=== PATIENT | female | born 1995 | race Caucasian/White ===

== ENCOUNTER → 2017-09-20 11:09 | Outpatient (CLI) | payer MEDICAID, SELFPAY ==
[2017-09-20 11:49] LABS: Basophils % 0.3 % (0.1-2.0); Eosinophils # 0.3 K/mm3 (0.0-0.4); Eosinophils % 3.2 % (0.1-12.0); Hematocrit 38.6 % (37.0-47.0); Hemoglobin 13.3 g/dL (12.2-16.2); Lymphocytes # 1.9 K/mm3 (0.7-4.5); Lymphocytes % 20.4 K/mm3 (10-50); Mean Corpuscular HGB Conc 34.4 g/dL (31.8-35.4); Mean Corpuscular Hemoglobin 31.7 pg (27.0-31.2); Mean Corpuscular Volume 92.1 fl (81-99); Monocytes # 0.5 K/mm3 (0.1-1.0); Monocytes % 4.9 % (1.7-9.3); Neutrophils # 6.5 K/mm3 (1.8-7.8); Neutrophils % 71.2 % (37.0-80.0); Platelet Count 156 K/mm3 (142-424); Red Blood Count 4.19 M/mm3 (4.20-5.40); Red Cell Distribution Width 12.7 % (11.5-17.5); White Blood Count 9.2 K/mm3 (4.8-10.8)
[2017-09-21 13:38] LABS: Hepatitis B Surface Antigen Negative (Negative); Rapid Plasma Reagin Ab Titer Non Reactive (NonRea<1:1); Rubella Antibodies, IgG <0.90 index (Immune >0.99)
== END ==
PROVIDERS: Family Provider Internal Medicine Adolescent Medicine; PCP Internal Medicine Adolescent Medicine; Visit Provider Nurse Practitioner Obstetrics & Gynecology
DX: Z34.90 Encounter for supervision of normal pregnancy, unspecified, unspecified trimester (principal)
CPT/HCPCS: 85025; 86592; 86762; 86850; 87340

== ENCOUNTER 2017-09-26 15:16 | Emergency (ER) | payer MEDICAID, SELFPAY | END 2017-09-26 16:27 | disposition left against medical advice (07) | LOC: UTC 15:21 | PROVIDERS: Emergency Provider Nurse Practitioner Family; Family Provider Internal Medicine Adolescent Medicine; PCP Internal Medicine Adolescent Medicine | DX: Z53.29 Procedure and treatment not carried out because of patient's decision for other reasons (principal) ==

== ENCOUNTER → 2017-09-27 14:38 | Outpatient (CLI) | payer MEDICAID, SELFPAY ==
--- NOTE | 2017-09-27 14:57 | US_ITS ---
US OB /maternal detail: Complete ultrasound survey at 21 weeks INDICATION: ITS.REASON: 20 wk+ Complete Anatomy Scan ORDERING PHYSICIAN: Inderjit Mack MD PATIENT AGE: 22 years TECHNIQUE: ultrasound transabdominal scanning. COMPARISON: No previous relevant studies. FINDINGS Single viable intrauterine gestation. Breech position Currently. Placenta: Anterior placenta grade 1. The cervix appears satisfactory. Closed and measuring 3.6 cm in length. Fetus is active with overall satisfactory anatomical survey. Complete survey performed and was unremarkable on the submitted images as in PACS. No discrete anomalies identified on survey imaging by technologist. Active fetus.Three-vessel cord with satisfactory umbilical cord insertion. Survey of brain & ventricles. & posterior fossa unremarkable Face and neck survey unremarkable.. Nasion intact Diaphragm and chest views unremarkable. 4- chamber heart imaged. Cine loop included. LVOT imaged Abdomen: Both kidneys noted and unremarkable. Stomach noted and satisfactory. Spine: Survey of the spine satisfactory with no anomalies identified nor imaged. Both arms and legs noted. Appears to be a female fetus Amniotic Fluid: Adequate. Maternal adnexa: No significant findings encountered. Measurements: Average ultrasound age 21 week 2 day. Gestational Age 21 week 4 day. Estimated due date by ultrasound age 502/05/2018. Estimated weight 416 g +/- 60 grams. BPD = 21 week 3 day OFD = 21 week 3 day HC = 20 week 5 day AC = 21 week 6 day FL = 21 week 0 day Heart Rate = 152 BPM Cerebellum = 21 week 5 day Humerus = 21 week 2 day HC/AC = 1.08.(1.09-1.26.) CI = 79.(70-86%). FL/BPD is 69. FL/AC is 21. (20-24%) ====== IMPRESSION: 1.... 21 weeks 2days average ultrasound age 2.... Breech Position. Anterior low-lying placenta with no previa 3..... Anatomical survey satisfactory. Unremarkable & WNL
== END ==
PROVIDERS: Family Provider Internal Medicine Adolescent Medicine; PCP Internal Medicine Adolescent Medicine; Visit Provider Nurse Practitioner Obstetrics & Gynecology
DX: Z36.0 Encounter for antenatal screening for chromosomal anomalies (principal)
CPT/HCPCS: 76811

== ENCOUNTER 2017-10-18 22:30 | Observation (INO) | payer MEDICAID, SELFPAY ==
[2017-10-18 21:41] VITALS: BMI 25.9
[2017-10-18 21:51] VITALS: BP 141/87; PULSE 91; RESP 16; TEMP 36.7; BMI 25.9
[2017-10-18 22:07] VITALS: BP 141/87; PULSE 91; RESP 16; TEMP 36.7
[2017-10-18 22:10] LABS: Amphetamine/Metha Screen,Urine Negative ng/mL (<1000); Barbiturates Screen,Urine Negative ng/mL (<200); Benzodiazepines Screen,Urine Negative ng/mL (200); Cannabinoid Screen,Urine Negative ng/mL (<50); Cocaine Screen,Urine Negative ng/g (<300); Methadone Screen,Urine Negative ng/mL (<300); Opiate Screen,Urine Negative ng/mL (<300); Phencyclidine Screen,Urine Negative ng/mL (<25)
[2017-10-19 06:45] LABS: Magnesium 1.6 mg/dL (1.4-2.2)
--- NOTE | 2017-10-19 07:06 | US_ITS ---
US OB biophysical profile: Umbilical artery Doppler Indication: ITS.REASON: r/o abruption ORDERING PHYSICIAN: Scott Iglesias CRNA PATIENT AGE: 22 years FINDINGS: There is a single live fetus present which is in cephalic position. The placenta is anterior. No evidence of previa or abruption. The following parameters are obtained: Average ultrasound age is 25 weeks 1 day. Estimated due date by ultrasound is 01/31/2018. There has been adequate progression.. Estimated weight is 756 g. This is 33rd percentile BPD: 24 weeks 6 days OFD: OFD HC: 25 weeks 3 days AC: 25 weeks 1 day FL: 24 weeks 6 days heart rate: 146 bpm. HC/AC: 1.14 Cephalic index: Not calculated FL/BPD: 73% FL/AC: 22% Amniotic fluid index: 16 cm Qualitative AFV: 2 breathing movements: 2 Gross body movements: 2 Tone: 2 Biophysical profile score: 8/8 Doppler evaluation of the umbilical artery: SD ratio: 2.8 Resistive index: 0.64 No obvious anomalies evident. Placenta: Anterior. No previa or abruption Cervix: Appears closed and measures 3 cm IMPRESSION: Live intrauterine gestation at 25 weeks 1 day. Biophysical profile is 8 of 8. Amniotic fluid index 16 cm Unremarkable umbilical artery evaluation. Anterior placenta. No previa or production. Please see above for detail
--- NOTE | 2017-10-19 08:17 | HMH.OBAPHP ---
OB - H&P: HPI Antepartum - History of Present Illness Chief complaint: labor - History of Present Criteria for establishing EDC:: LMP confirmed by 1st trimester US care: good care Ultrasounds: normal 1st trimester US, normal mid trimester US Obstetrical complications: labor Medical complications: none Planning to breastfeed?: No H History I have reviewed the patient's past medical history: Yes Medical History: Reports:: Depression Denies:: Diabetes Mellitus Type 1 Laterality Cases: Bilateral: Other Other Surgeries: Yes: Appendectomy, , Other Amputation: No Fractures: No - *Social History Educational Level: Completed High School Smoking Status: Current every day smoker Tobacco Type: cigarettes Alcohol Intake: never Substance Use Type: denies use Occupational Status: employed Household Members: family - Psychiatric History Expresses thoughts of harming self/others: None Suicide Plan Description: No Plan Pschychiatric History:: Reports:: Depression *Family Hx:: Cancer, Heart Attack, Diabetes, Thyroid Disorder Para: 1 Review of Systems - Review of Systems Review of systems:: pertinent systems reviewed and negative unless documented below Meds Home Medications Medication Instructions Recorded Confirmed Type 1 tab PO QDAY 09/17/17 10/19/17 History vitamin,calcium,bhaulztx-voez-cljhw acid tablet Ferrous Sulfate [Ferrous Sulfate 325 mg PO DAILY MDD 1 10/19/17 10/19/17 History 325mg Tablet] Allergies Allergy/AdvReac Type Severity Reaction Status Date / Time No Known Allergies Allergy Verified 10/18/17 21:21 OB - H&P: Exam - Physical Exam Vital signs: Temp Pulse Resp BP 98.1 F 91 H 16 141/87 10/18/17 22:07 10/18/17 22:07 10/18/17 22:07 10/18/17 22:07 - Constitutional no acute distress OB - A/P Antepartum (1) labor in second trimester Current visit: Yes Status: Acute - Additional Plan Plan: expectant management (She has contractions and she is now on magnesium sulfate. She has had 1 dose of steroids and is receiving IV magnesium sulfate. We will plan to watch her closely. If she continues to contract we will send her down to .)
--- NOTE | 2017-10-19 08:19 | HMH.ACPN2 ---
Internal Medicine - PN: Subj *Date: 10/19/17 *Time: 08:19 Interval history: She arrived last night with vaginal bleeding. She had an ultrasound this morning that was essentially normal with a normal cervical length. She continues to have occasional contractions. She has had no further episodes of bleeding. She has received steroids and she is receiving IV magnesium sulfate. If she continues to contract we will send her down to . Exam Vital signs and Labs for Last 24 Hours: Temp Pulse Resp BP 98.1 F 91 H 16 141/87 10/18/17 22:07 10/18/17 22:07 10/18/17 22:07 10/18/17 22:07 Laboratory Results - last 24 hr 10/18/17 21:00: Urine Opiates Screen Negative, Ur Barbituates Screen Negative, Ur Phencyclidine Scrn Negative, Ur Amphetamines Screen Negative, U Methamphetamines Scrn Negative, U Benzodiazepines Scrn Negative, Urine Cocaine Screen Negative, U Marijuana (THC) Screen Negative 10/18/17 21:40: Magnesium 1.6 I & O for Last 24 hours: Intake & Output 10/16/17 10/17/17 10/18/17 10/19/17 11:59 11:59 11:59 11:59 Weight 146 lb 5 oz Microbiology Reports for the Last 24 Hours: Microbiology 10/18/17 21:40 Vaginal - Vaginal Wet Prep - Final 10/18/17 21:45 Vaginal - Vaginal MARK Preparation - Final - Constitutional no acute distress Assessment and Plan (1) labor in second trimester Current visit: Yes Status: Acute Category: Medical Code(s): O60.02 - labor without delivery, second trimester - Assessment and plan all Dx Assessment and Plan for all problems:: We will continue with her IV magnesium sulfate and steroids. We will see how she does. If she continues to contract we will ask for her to .
--- NOTE | 2017-10-19 09:18 | HMH.DCSUM ---
General - General Admission date: 10/18/17 Discharge date: 10/19/17 HPI HPI: She is a 22-year-old 2 para 1 who is 24 weeks and 5 days gestational age. She came in last night having some vaginal bleeding. She subsequently settled the bleeding when she arrived. Overnight she has received Celestone 12 mg. She received a few doses of Brethine overnight and this morning we have started her on magnesium sulfate. She received a 4 g bolus and is receiving 2 g an hour right now. She will also receive 500 mg of ampicillin this morning. I spoke to Dr. Walter at and since Sima continues to have contractions every 5 minutes we will go ahead and transfer her there. An ultrasound this morning showed the baby in the cephalic presentation with normal fluid. No evidence of abruption. Her cervix was 3 cm long on ultrasound. She did have a wet mount that showed trichomonas. She has had a previous delivery at 35 weeks by section. She has herpes 2 antibody positive as well as hepatitis C. Objective Vital signs: Temp Pulse Resp BP 98.1 F 91 H 16 141/87 10/18/17 22:07 10/18/17 22:07 10/18/17 22:07 10/18/17 22:07 no acute distress Hospital Course Hospital Course: She has received steroids as well as IV antibiotics. She is receiving IV magnesium sulfate. She continues to have contractions every 5 minutes that are mild. He will be transferred to . Results Labs on day of discharge: Labs from last 24 hours 10/18/17 10/18/17 21:40 21:00 Magnesium 1.6 Urine Opiates Screen Negative Ur Barbituates Screen Negative Ur Phencyclidine Scrn Negative Ur Amphetamines Screen Negative U Methamphetamines Scrn Negative U Benzodiazepines Scrn Negative Urine Cocaine Screen Negative U Marijuana (THC) Screen Negative DS: Diagnosis - Discharge Diagnosis (1) labor in second trimester Status: Acute Meds Home Medications Medication Instructions Recorded Confirmed Type 1 tab PO QDAY 09/17/17 10/19/17 History vitamin,calcium,kdfspvgd-duir-qieqj acid tablet Ferrous Sulfate [Ferrous Sulfate 325 mg PO DAILY MDD 1 10/19/17 10/19/17 History 325mg Tablet] Allergies Allergy/AdvReac Type Severity Reaction Status Date / Time No Known Allergies Allergy Verified 10/18/17 21:21 Discharge Plan - Patient Discharge Instructions ACTIVITY: Bed rest DIET: continue same diet - Follow up Plan Disposition: Xfer Short-Term Hosp Home Medications: Home Medications Medication Instructions Recorded Confirmed Type 1 tab PO QDAY 09/17/17 10/19/17 History vitamin,calcium,iqkyybvr-tfch-wwxnj acid tablet Ferrous Sulfate [Ferrous Sulfate 325 mg PO DAILY MDD 1 10/19/17 10/19/17 History 325mg Tablet] Prescriptions/Medication Reconciliation: Continue vitamin,calcium,uuumytia-jlau-knzoo acid tablet 1 tab PO QDAY Ferrous Sulfate [Ferrous Sulfate 325mg Tablet] 325 mg PO DAILY MDD 1
--- NOTE | 2017-10-19 09:21 | P.DS_ITS ---
General - General Admission date: 10/18/17 Discharge date: 10/19/17 HPI HPI: She is a 22-year-old 2 para 1 who is 24 weeks and 5 days gestational age. She came in last night having some vaginal bleeding. She subsequently settled the bleeding when she arrived. Overnight she has received Celestone 12 mg. She received a few doses of Brethine overnight and this morning we have started her on magnesium sulfate. She received a 4 g bolus and is receiving 2 g an hour right now. She will also receive 500 mg of ampicillin this morning. I spoke to Dr. Walter at and since Sima continues to have contractions every 5 minutes we will go ahead and transfer her there. An ultrasound this morning showed the baby in the cephalic presentation with normal fluid. No evidence of abruption. Her cervix was 3 cm long on ultrasound. She did have a wet mount that showed trichomonas. She has had a previous delivery at 35 weeks by section. She has herpes 2 antibody positive as well as hepatitis C. Objective Vital signs: Temp Pulse Resp BP 98.1 F 91 H 16 141/87 10/18/17 22:07 10/18/17 22:07 10/18/17 22:07 10/18/17 22:07 no acute distress Hospital Course Hospital Course: She has received steroids as well as IV antibiotics. She is receiving IV magnesium sulfate. She continues to have contractions every 5 minutes that are mild. He will be transferred to . Results Labs on day of discharge: Labs from last 24 hours 10/18/17 10/18/17 21:40 21:00 Magnesium 1.6 Urine Opiates Screen Negative Ur Barbituates Screen Negative Ur Phencyclidine Scrn Negative Ur Amphetamines Screen Negative U Methamphetamines Scrn Negative U Benzodiazepines Scrn Negative Urine Cocaine Screen Negative U Marijuana (THC) Screen Negative DS: Diagnosis - Discharge Diagnosis (1) labor in second trimester Status: Acute Meds Home Medications Medication Instructions Recorded Confirmed Type 1 tab PO QDAY 09/17/17 10/19/17 History vitamin,calcium,qepoauty-iwtw-tlkjb acid tablet Ferrous Sulfate [Ferrous Sulfate 325 mg PO DAILY MDD 1 10/19/17 10/19/17 History 325mg Tablet] Allergies Allergy/AdvReac Type Severity Reaction Status Date / Time No Known Allergies Allergy Verified 10/18/17 21:21 Discharge Plan - Patient Discharge Instructions ACTIVITY: Bed rest DIET: continue same diet - Follow up Plan Disposition: Xfer Short-Term Hosp Home Medications: Home Medications Medication Instructions Recorded Confirmed Type 1 tab PO QDAY 09/17/17 10/19/17 History vitamin,calcium,jrovquca-lsew-fcnic acid tablet Ferrous Sulfate [Ferrous Sulfate 325 mg PO DAILY MDD 1 10/19/17 10/19/17 History 325mg Tablet] Prescriptions/Medication Reconciliation: Continue vitamin,calcium,zbklbinc-aalo-hpgkb acid tablet 1 tab PO QDAY Ferrous Sulfate [Ferrous Sulfate 325mg Tablet] 325 mg PO DAILY MDD 1
[2017-10-19 09:30] VITALS: BP 112/73; PULSE 89; RESP 20; TEMP 36.6; O2SAT 96
== END 2017-10-19 10:29 | disposition short-term general hospital (02) ==
LOC: OBOUT 22:33
PROVIDERS: Admitting Provider Nurse Practitioner Obstetrics & Gynecology; PCP Nurse Practitioner Obstetrics & Gynecology; Visit Provider Nurse Practitioner Obstetrics & Gynecology
DX: O60.02 Preterm labor without delivery, second trimester (principal); Z3A.24 24 weeks gestation of pregnancy
CPT/HCPCS: 59025; 76819; 80305; 83735; 87086; 87210; 87220; 96360; G0378; J0290

== ENCOUNTER 2017-12-02 14:21 | Outpatient (CLI) | payer MEDICAID, SELFPAY ==
[2017-12-02 14:27] VITALS: BMI 27.5
[2017-12-02 14:54] VITALS: BP 119/77; PULSE 90; RESP 18; TEMP 36.8; O2SAT 96; BMI 27.5
[2017-12-02 15:03] LABS: Fetal Membrane Rupture (Rapid) Negative (Negative)
== END 2017-12-02 16:14 | disposition home or self-care (01) ==
LOC: OBOUT 14:23 → OB 14:24
PROVIDERS: PCP Nurse Practitioner Obstetrics & Gynecology; Visit Provider Nurse Practitioner Obstetrics & Gynecology
DX: O26.893 Other specified pregnancy related conditions, third trimester (principal); Z3A.31 31 weeks gestation of pregnancy
CPT/HCPCS: 59025; 84112; 96360; 96372

== ENCOUNTER 2017-12-06 17:03 | Outpatient (CLI) | payer MEDICAID, SELFPAY ==
[2017-12-06 17:35] VITALS: BMI 27.8
[2017-12-06 17:39] VITALS: BP 122/83; PULSE 97; RESP 20; TEMP 36.6; O2SAT 95; BMI 61.4
[2017-12-06 17:58] LABS: Appearance,Urine CLEAR (Clear); Bilirubin,Urine Negative (Negative); Blood, Urine Negative (Negative); Color,Urine YELLOW (Yellow); Glucose,Urine (UA) Negative (Negative); Ketones,Urine Negative (Negative); Leukocyte Esterase,Urine 2+ (Negative); Microscopic, Urine URINE MICROSCOPIC (MICROSCOPIC); Nitrate,Urine Negative (Negative); Protein,Urine Negative (Negative); Specific Gravity, Urine 1.015 (1.005-1.030); Urobilinogen,Urine 0.2 EU/dl (0.2)
[2017-12-06 18:10] LABS: Amphetamine/Metha Screen,Urine Negative ng/mL (<1000); Barbiturates Screen,Urine Negative ng/mL (<200); Benzodiazepines Screen,Urine Negative ng/mL (200); Cannabinoid Screen,Urine Negative ng/mL (<50); Cocaine Screen,Urine Negative ng/g (<300); Methadone Screen,Urine Negative ng/mL (<300); Opiate Screen,Urine Negative ng/mL (<300); Phencyclidine Screen,Urine Negative ng/mL (<25)
[2017-12-06 18:22] LABS: Bacteria,Urine 2+ /lpf; Mucus,Urine 1+ /lpf; Trichomonas,Urine 1+ /lpf
[2017-12-06 18:23] LABS: Fetal Fibronectin (Rapid) Negative (Negative)
== END 2017-12-06 19:20 | disposition home or self-care (01) ==
LOC: OBOUT 17:07 → OB 17:07
PROVIDERS: PCP Nurse Practitioner Obstetrics & Gynecology; Visit Provider Nurse Practitioner Obstetrics & Gynecology
DX: O26.893 Other specified pregnancy related conditions, third trimester (principal); Z3A.31 31 weeks gestation of pregnancy; R42 Dizziness and giddiness
CPT/HCPCS: 59025; 80305; 81001; 82731; 87086; 96360; 96372

== ENCOUNTER 2017-12-30 21:53 | Outpatient (CLI) | payer MEDICAID, SELFPAY ==
[2017-12-30 22:19] VITALS: BP 132/93; PULSE 109; RESP 18; TEMP 36.6; O2SAT 98; BMI 27.6
[2017-12-30 22:38] VITALS: BMI 28.5
[2017-12-30 22:47] LABS: Microscopic, Urine URINE MICROSCOPIC (MICROSCOPIC)
[2017-12-30 23:04] LABS: Appearance,Urine CLEAR (Clear); Bilirubin,Urine Negative (Negative); Blood, Urine Negative (Negative); Color,Urine YELLOW (Yellow); Glucose,Urine (UA) Negative (Negative); Ketones,Urine Negative (Negative); Leukocyte Esterase,Urine TRACE (Negative); Nitrate,Urine Negative (Negative); Protein,Urine Negative (Negative); Urobilinogen,Urine 0.2 EU/dl (0.2)
[2017-12-30 23:11] LABS: Bacteria,Urine Trace /lpf; Mucus,Urine 2+ /lpf
[2017-12-30 23:12] LABS: Amphetamine/Metha Screen,Urine Negative ng/mL (<1000); Barbiturates Screen,Urine Negative ng/mL (<200); Benzodiazepines Screen,Urine Negative ng/mL (200); Cannabinoid Screen,Urine Negative ng/mL (<50); Cocaine Screen,Urine Negative ng/g (<300); Methadone Screen,Urine Negative ng/mL (<300); Opiate Screen,Urine Negative ng/mL (<300); Phencyclidine Screen,Urine Negative ng/mL (<25)
[2017-12-30 23:14] LABS: Fetal Fibronectin (Rapid) Negative (Negative)
== END 2017-12-31 00:30 | disposition home or self-care (01) ==
LOC: OBOUT 21:56 → OB 21:58
PROVIDERS: PCP Nurse Practitioner Obstetrics & Gynecology; Visit Provider Obstetrics & Gynecology
DX: O47.03 False labor before 37 completed weeks of gestation, third trimester (principal); Z3A.35 35 weeks gestation of pregnancy
CPT/HCPCS: 59025; 80305; 81001; 82731

== ENCOUNTER → 2018-01-05 17:35 | Outpatient (REF) | payer MEDICAID, SELFPAY | LOC: LAB 17:35 | PROVIDERS: Visit Provider Nurse Practitioner Obstetrics & Gynecology | DX: Z34.90 Encounter for supervision of normal pregnancy, unspecified, unspecified trimester (principal) | CPT/HCPCS: 86403 ==

== ENCOUNTER 2018-01-10 19:41 | Inpatient (IN) ==
[2018-01-10 20:16] LABS: Microscopic, Urine URINE MICROSCOPIC (MICROSCOPIC)
[2018-01-10 20:19] LABS: Appearance,Urine CLEAR (Clear); Bilirubin,Urine Negative (Negative); Blood, Urine Negative (Negative); Color,Urine YELLOW (Yellow); Glucose,Urine (UA) Negative (Negative); Ketones,Urine Negative (Negative); Leukocyte Esterase,Urine Negative (Negative); PH,Urine 6.5 (5.0-8.5); Protein,Urine Negative (Negative); Specific Gravity, Urine <= 1.005 (1.005-1.030); Urobilinogen,Urine 0.2 EU/dl (0.2)
[2018-01-10 20:28] LABS: Amphetamine/Metha Screen,Urine Negative ng/mL (<1000); Barbiturates Screen,Urine Negative ng/mL (<200); Benzodiazepines Screen,Urine Negative ng/mL (200); Cannabinoid Screen,Urine Negative ng/mL (<50); Cocaine Screen,Urine Negative ng/g (<300); Methadone Screen,Urine Negative ng/mL (<300); Opiate Screen,Urine Negative ng/mL (<300); Phencyclidine Screen,Urine Negative ng/mL (<25)
[2018-01-10 20:38] LABS: Bacteria,Urine 1+ /lpf
--- NOTE | 2018-01-10 21:33 | History & Physical Report ---
OB - H&P: HPI Antepartum - History of Present Illness Chief complaint: Contractions History of present illness: She is a 22-year-old 2 para 1 who is 37 weeks gestational age. She has had a previous section. She came in having regular contractions. She is 1-2 cm and has not changed her cervix despite regular contractions. She is quite uncomfortable. - History of Present Criteria for establishing EDC:: LMP confirmed by 1st trimester US care: good care Ultrasounds: normal 1st trimester US, normal mid trimester US Obstetrical complications: labor Medical complications: none [facility] History I have reviewed the patient's past medical history: Yes Medical History: Reports:: Depression Denies:: Diabetes Mellitus Type 1 Laterality Cases: Bilateral: Other Other Surgeries: Yes: Appendectomy, , Other Amputation: No Fractures: No - *Social History Smoking Status: Current every day smoker Tobacco Type: cigarettes Alcohol Intake: never Substance Use Type: denies use Occupational Status: employed Household Members: family - Psychiatric History Pschychiatric History:: Reports:: Depression *Family Hx:: Cancer, Heart Attack, Diabetes, Thyroid Disorder Meds Home Medications Medication Instructions Recorded Confirmed Type 1 tab PO QDAY 09/17/17 12/30/17 History vitamin,calcium,pxkztcyx-kihk-swxyq acid tablet NIFEdipine [Procardia] 10 mg PO TID 12/30/17 12/30/17 History metroNIDAZOLE [Flagyl] 500 mg PO BID 12/30/17 12/30/17 History ferrous sulfate 325 mg (65 mg 325 mg PO DAILY tab 01/05/18 History iron) tablet Allergies Allergy/AdvReac Type Severity Reaction Status Date / Time No Known Allergies Allergy Verified 01/10/18 10:22 OB - H&P: Exam - Constitutional mild distress OB - Results - Labs Labs: Urine 01/10/18 Range/Units 19:50 Urine Color Yellow (Yellow) Urine Appearance Clear (Clear) Urine pH 6.5 (5.0-8.5) Ur Specific [place] <= 1.005 (1.005-1.030) Urine Protein Negative (Negative) Urine Glucose (UA) Negative (Negative) OB - A/P Antepartum (1) labor in third trimester Current visit: Yes Status: Acute - Additional Plan Plan: expectant management Additional Information:: She continues to have occasional contractions. She is received 1 dose of Brethine. Her blood pressure slightly elevated in the 140/90 range. She has settled her contractions with the breast-feed and IV fluids. We will watch her overnight. If she changes her cervix we will perform a repeat section.
[2018-01-11 07:52] LABS: Basophils % 0.3 % (0.1-2.0); Eosinophils # 0.2 K/mm3 (0.0-0.4); Eosinophils % 2.9 % (0.1-12.0); Hemoglobin 11.6 g/dL (12.2-16.2); Lymphocytes # 1.9 K/mm3 (0.7-4.5); Lymphocytes % 28.3 K/mm3 (10-50); Mean Corpuscular Hemoglobin 32.7 pg (27.0-31.2); Mean Corpuscular Volume 93.3 fl (81-99); Mean Platelet Volume 9.9 fl (7.4-10.4); Monocytes # 0.4 K/mm3 (0.1-1.0); Monocytes % 6.4 % (1.7-9.3); Neutrophils # 4.3 K/mm3 (1.8-7.8); Neutrophils % 62.1 % (37.0-80.0); Platelet Count 114 K/mm3 (142-424); Red Blood Count 3.54 M/mm3 (4.20-5.40); Red Cell Distribution Width 12.7 % (11.5-17.5); White Blood Count 6.9 K/mm3 (4.8-10.8)
[2018-01-11 07:55] LABS: Anion Gap 11.8 mEq/L (5-15); Potassium 3.8 mmoL/L (3.5-5.1)
--- NOTE | 2018-01-11 08:11 | Progress Note ---
Internal Medicine - PN: Therese *Date: 01/11/18 *Time: 08:09 Interval history: She has had some runs of contractions overnight however they have since settled. She is 36 and 6 weeks gestational age. Exam Vital signs and Labs for Last 24 Hours: Temp Pulse Resp BP Pulse Ox 98.0 F 99 H 18 141/98 98 01/10/18 20:57 01/10/18 20:57 01/10/18 20:57 01/10/18 20:57 01/10/18 20:57 Laboratory Results - last 24 hr 01/10/18 19:50: Urine Opiates Screen Negative, Ur Barbituates Screen Negative, Ur Phencyclidine Scrn Negative, Ur Amphetamines Screen Negative, U Methamphetamines Scrn Negative, U Benzodiazepines Scrn Negative, Urine Cocaine Screen Negative, U Marijuana (THC) Screen Negative 01/10/18 19:50: Urine Color Yellow, Urine Appearance Clear, Urine pH 6.5, Ur Specific [place] <= 1.005, Urine Protein Negative, Urine Glucose (UA) Negative, Urine Ketones Negative, Urine Blood Negative, Urine Nitrate Negative, Urine Bilirubin Negative, Urine Urobilinogen 0.2, Ur Leukocyte Esterase Negative, Urine WBC 3-5, Ur Squamous Epith Cells 3-5, Urine Bacteria 1+ 01/11/18 07:33: WBC 6.9, RBC 3.54 L, Hgb 11.6 L, Hct 33.0 L, MCV 93.3, MCH 32.7 H, MCHC 35.0, RDW 12.7, Plt Count 114 L, MPV 9.9, Neut % (Auto) 62.1, Lymph % ( Auto) 28.3, [place] % (Auto) 6.4, Eos % (Auto) 2.9, Baso % (Auto) 0.3, Neut # (Auto ) 4.3, Lymph # (Auto) 1.9, [place] # (Auto) 0.4, Eos # (Auto) 0.2, Baso # (Auto) 0.0 01/11/18 07:33: Sodium 142, Potassium 3.8, Chloride 109 H, Carbon Dioxide 25, Anion Gap 11.8, BUN 7, Creatinine 0.48 L, Estimated Creat Clear 202, Estimated GFR 160, Est GFR ( Amer) 194, Glucose 100 I & O for Last 24 hours: Intake & Output 01/08/18 01/09/18 01/10/18 01/11/18 11:59 11:59 11:59 11:59 Weight 155 lb - Constitutional no acute distress - *Routine Exam Comments: Her cervix is closed and 50% which is what it was in the office. It is soft and somewhat but otherwise has not dilated. Her nonstress test is reactive. She is not having any more contractions. Assessment and Plan (1) labor in third trimester Current visit: Yes Status: Acute Category: Medical Code(s): O60.03 - labor without delivery, third trimester - Assessment and plan all Dx Assessment and Plan for all problems:: At this point in time we will continue to observe her. She is no longer june. She did fuse Brethine earlier this morning. We will continue observation hospital for now and if she stops june we will consider sending her home later today or tomorrow. Her cervix is unchanged.
--- NOTE | 2018-01-11 14:07 | Discharge Summary ---
General - General Admission date:: 01/11/18 Discharge date: 01/11/18 HPI HPI: She was admitted last night with contractions at 36 weeks and 5 days. She received 1 dose of Brethine as well as IV fluids. Hospital Course Hospital Course: She received IV fluids as well as 1 dose of Brethine. She continues to have occasional contractions but she has not changed her cervix. Her cervix is closed and 50% which is what it was in the office. The contractions are uncomfortable at times but they are not changing her cervix. She has an appointment to follow-up with me next week. She will continue with her vitamins and iron. Objective Vital signs: Temp Pulse Resp BP Pulse Ox 98.0 F 99 H 18 141/98 98 01/10/18 20:57 01/10/18 20:57 01/10/18 20:57 01/10/18 20:57 01/10/18 20:57 no acute distress Results Labs on day of discharge: Labs from last 24 hours 01/11/18 01/11/18 01/11/18 08:01 07:33 07:33 WBC 6.9 RBC 3.54 L Hgb 11.6 L Hct 33.0 L MCV 93.3 MCH 32.7 H MCHC 35.0 RDW 12.7 Plt Count 114 L MPV 9.9 Neut % (Auto) 62.1 Lymph % (Auto) 28.3 [place] % (Auto) 6.4 Eos % (Auto) 2.9 Baso % (Auto) 0.3 Neut # (Auto) 4.3 Lymph # (Auto) 1.9 [place] # (Auto) 0.4 Eos # (Auto) 0.2 Baso # (Auto) 0.0 Sodium 142 Potassium 3.8 Chloride 109 H Carbon Dioxide 25 Anion Gap 11.8 BUN 7 Creatinine 0.48 L Estimated Creat Clear 202 Estimated GFR 160 Est GFR ( Amer) 194 Glucose 100 Urine Color Urine Appearance Urine pH Ur Specific [place] Urine Protein Urine Glucose (UA) Urine Ketones Urine Blood Urine Nitrate Urine Bilirubin Urine Urobilinogen Ur Leukocyte Esterase Urine WBC Ur Squamous Epith Cells Urine Bacteria Urine Opiates Screen Ur Barbituates Screen Ur Phencyclidine Scrn Ur Amphetamines Screen U Methamphetamines Scrn U Benzodiazepines Scrn Urine Cocaine Screen U Marijuana (THC) Screen Blood Type B Positive Antibody Screen Negative 01/10/18 01/10/18 19:50 19:50 WBC RBC Hgb Hct MCV MCH MCHC RDW Plt Count MPV Neut % (Auto) Lymph % (Auto) [place] % (Auto) Eos % (Auto) Baso % (Auto) Neut # (Auto) Lymph # (Auto) [place] # (Auto) Eos # (Auto) Baso # (Auto) Sodium Potassium Chloride Carbon Dioxide Anion Gap BUN Creatinine Estimated Creat Clear Estimated GFR Est GFR ( Amer) Glucose Urine Color Yellow Urine Appearance Clear Urine pH 6.5 Ur Specific [place] <= 1.005 Urine Protein Negative Urine Glucose (UA) Negative Urine Ketones Negative Urine Blood Negative Urine Nitrate Negative Urine Bilirubin Negative Urine Urobilinogen 0.2 Ur Leukocyte Esterase Negative Urine WBC 3-5 Ur Squamous Epith Cells 3-5 Urine Bacteria 1+ Urine Opiates Screen Negative Ur Barbituates Screen Negative Ur Phencyclidine Scrn Negative Ur Amphetamines Screen Negative U Methamphetamines Scrn Negative U Benzodiazepines Scrn Negative Urine Cocaine Screen Negative U Marijuana (THC) Screen Negative Blood Type Antibody Screen DS: Diagnosis - Discharge Diagnosis (1) labor in third trimester Status: Acute Discharge Plan - Patient Discharge Instructions ACTIVITY: Continue current activity DIET: continue same diet - Follow up Plan Disposition: Home, Self-Senior Living Medications: Home Medications Medication Instructions Recorded Confirmed Type 1 tab PO DAILY 09/17/17 01/11/18 History vitamin,calcium,srdcylto-pelw-bsjyy acid tablet NIFEdipine [Procardia] 10 mg PO TID 12/30/17 01/10/18 History ferrous sulfate 325 mg (65 mg 325 mg PO DAILY tab 01/05/18 01/10/18 History iron) tablet Prescriptions/Medication Reconciliation: Continue ferrous sulfate 325 mg (65 mg iron) tablet 325 mg PO DAILY tab vitamin,calcium,vzxgatrd-hgmd-dulaj acid tablet 1 tab PO DAILY NIFEdipine [Procardia] 10 mg PO TID
== END 2018-01-11 14:18 | disposition home or self-care (01) ==
LOC: OB 19:41 → OBOUT 19:41 → OB 19:43
PROVIDERS: ADMIT Nurse Practitioner Obstetrics & Gynecology; ATTEND Nurse Practitioner Obstetrics & Gynecology

== ENCOUNTER 2018-01-12 09:47 | Outpatient (CLI) | payer MEDICAID, SELFPAY ==
[2018-01-12 10:00] VITALS: BP 138/85; PULSE 114; RESP 18; TEMP 37; O2SAT 96; BMI 28.3
== END 2018-01-12 10:43 | disposition home or self-care (01) ==
LOC: OBOUT 09:49 → OB 09:50
PROVIDERS: PCP Internal Medicine Adolescent Medicine; Visit Provider Nurse Practitioner Obstetrics & Gynecology
DX: O60.03 Preterm labor without delivery, third trimester (principal); Z3A.36 36 weeks gestation of pregnancy; R10.2 Pelvic and perineal pain
CPT/HCPCS: 59025

== ENCOUNTER 2018-01-13 20:45 | Outpatient (CLI) | payer MEDICAID, SELFPAY ==
[2018-01-13 21:00] VITALS: BMI 28.9
[2018-01-13 21:09] VITALS: BP 131/89; PULSE 98; RESP 18; TEMP 37.2; O2SAT 97; BMI 63.7
[2018-01-13 21:30] LABS: Microscopic, Urine URINE MICROSCOPIC (MICROSCOPIC)
[2018-01-13 21:33] LABS: Appearance,Urine CLEAR (Clear); Bilirubin,Urine Negative (Negative); Blood, Urine Negative (Negative); Color,Urine YELLOW (Yellow); Glucose,Urine (UA) Negative (Negative); Ketones,Urine Negative (Negative); Leukocyte Esterase,Urine Negative (Negative); Nitrate,Urine Negative (Negative); PH,Urine 6.5 (5.0-8.5); Protein,Urine Negative (Negative); Specific Gravity, Urine 1.025 (1.005-1.030)
[2018-01-13 21:51] LABS: Amphetamine/Metha Screen,Urine Negative ng/mL (<1000); Barbiturates Screen,Urine Negative ng/mL (<200); Benzodiazepines Screen,Urine Negative ng/mL (200); Cannabinoid Screen,Urine Negative ng/mL (<50); Cocaine Screen,Urine Negative ng/g (<300); Methadone Screen,Urine Negative ng/mL (<300); Opiate Screen,Urine Negative ng/mL (<300); Phencyclidine Screen,Urine Negative ng/mL (<25)
[2018-01-13 22:24] LABS: Amorphous Sediment,Urine 2+ /lpf; Bacteria,Urine 1+ /lpf; RBC,Urine Occasional #/hpf (0-3); WBC,Urine Occasional #/hpf (0-3)
== END 2018-01-13 23:07 | disposition home or self-care (01) ==
LOC: OBOUT 20:49 → OB 20:50
PROVIDERS: PCP Nurse Practitioner Obstetrics & Gynecology; Visit Provider Obstetrics & Gynecology
DX: O60.03 Preterm labor without delivery, third trimester (principal); Z3A.37 37 weeks gestation of pregnancy
CPT/HCPCS: 59025; 80305; 81001; 96360

== ENCOUNTER 2018-01-20 06:02 | Inpatient (IN) ==
[2018-01-20 07:01] LABS: Amphetamine/Metha Screen,Urine Negative ng/mL (<1000); Barbiturates Screen,Urine Negative ng/mL (<200); Benzodiazepines Screen,Urine Negative ng/mL (200); Cannabinoid Screen,Urine Negative ng/mL (<50); Cocaine Screen,Urine Negative ng/g (<300); Methadone Screen,Urine Negative ng/mL (<300); Opiate Screen,Urine Negative ng/mL (<300); Phencyclidine Screen,Urine Negative ng/mL (<25)
[2018-01-20 07:40] LABS: Basophils % 0.2 % (0.1-2.0); Eosinophils # 0.2 K/mm3 (0.0-0.4); Eosinophils % 2.5 % (0.1-12.0); Hemoglobin 12.8 g/dL (12.2-16.2); Lymphocytes # 2.1 K/mm3 (0.7-4.5); Lymphocytes % 27.4 K/mm3 (10-50); Mean Corpuscular HGB Conc 35.5 g/dL (31.8-35.4); Mean Corpuscular Hemoglobin 32.6 pg (27.0-31.2); Mean Corpuscular Volume 91.9 fl (81-99); Mean Platelet Volume 9.9 fl (7.4-10.4); Monocytes # 0.4 K/mm3 (0.1-1.0); Monocytes % 5.3 % (1.7-9.3); Neutrophils # 4.9 K/mm3 (1.8-7.8); Neutrophils % 64.5 % (37.0-80.0); Platelet Count 123 K/mm3 (142-424); Red Blood Count 3.92 M/mm3 (4.20-5.40); Red Cell Distribution Width 12.7 % (11.5-17.5); White Blood Count 7.6 K/mm3 (4.8-10.8)
[2018-01-20 07:42] LABS: Anion Gap 14.9 mEq/L (5-15); Potassium 3.9 mmoL/L (3.5-5.1)
[2018-01-20 08:05] LABS: Microscopic, Urine URINE MICROSCOPIC (MICROSCOPIC)
[2018-01-20 08:10] LABS: Appearance,Urine SL CLOUDY (Clear); Blood, Urine Negative (Negative); Color,Urine YELLOW (Yellow); Glucose,Urine (UA) Negative (Negative); Ketones,Urine Negative (Negative); Leukocyte Esterase,Urine 1+ (Negative); Protein,Urine TRACE (Negative); Specific Gravity, Urine >= 1.030 (1.005-1.030); Urobilinogen,Urine 0.2 EU/dl (0.2)
--- NOTE | 2018-01-20 08:21 | Progress Note ---
[facility] Anesthesia Checklist - Structural Data Admitted From: Home Planned Operative Procedure/s: c/section Consent for Planned Operative Procedure(s) Verified: Yes - Airway Assessment C-Spine Mobility Assessed: Yes TMJ Mobility Assessed: Yes Dentition: Good Dentition - Neurological Assessment Level of Consciousness: Awake, Alert, Appropriate - Anesthesia Plan Anesthesia Risk discussed: Yes Anesthesia Plan: Verified ASA Class: II Anesthesia Type: Spinal [facility] Anesthesia HX I have reviewed the patient's past medical history: Yes Medical History: Reports:: Depression Denies:: Cancer, Diabetes Mellitus Type 1, Diabetes Mellitus Type 2, MRSA Laterality Cases: Bilateral: Other Other Surgeries: Yes: Appendectomy, , Other (APPENDECTOMY, GALLBLADDER) Amputation: No Fractures: No *Family Hx:: Cancer, Heart Attack, Diabetes, Thyroid Disorder
[2018-01-20 08:25] LABS: Bilirubin,Urine Negative (Negative)
[2018-01-20 08:30] LABS: Bacteria,Urine 2+ /lpf; Squamous Epithelial Cell,Urine TNTC #/hpf (0-5)
--- NOTE | 2018-01-20 09:32 | History & Physical Report ---
OB - H&P: HPI Antepartum - History of Present Illness Chief complaint: Term , history of herpes 2, previous section , IUGR History of present illness: She is a 22-year-old 2 para 1 who was 38 weeks gestational age. She was seen in my office a couple of days ago and had a baby that was fourth centile. Since the baby was small and she has had a previous section as result of herpes type II virus we like to perform a repeat lower segment transverse section early. She is putting the baby up for adoption. - History of Present Criteria for establishing EDC:: LMP confirmed by 1st trimester US care: good care Obstetrical complications: labor Medical complications: none - Labs Blood type: B (+) positive Rubella: immune RPR/VDRL: nonreactive GBS status: negative HBsAG: negative [facility]H History I have reviewed the patient's past medical history: Yes Medical History: Reports:: Depression Denies:: Cancer, Diabetes Mellitus Type 1, Diabetes Mellitus Type 2, MRSA Laterality Cases: Bilateral: Other Other Surgeries: Yes: Appendectomy, , Other (APPENDECTOMY, GALLBLADDER) Amputation: No Fractures: No - *Social History Educational Level: Completed High School Smoking Status: Current every day smoker Tobacco Type: cigarettes # Packs/Day (cigarettes): 1 Alcohol Intake: never Substance Use Type: denies use Occupational Status: unemployed Housing: house Household Members: family - Psychiatric History Expresses thoughts of harming self/others: None Suicide Plan Description: No Plan Pschychiatric History:: Reports:: Depression *Family Hx:: Cancer, Heart Attack, Diabetes, Thyroid Disorder Para: 1 Review of Systems - Review of Systems Review of systems:: pertinent systems reviewed and negative unless documented below Meds Home Medications Medication Instructions Recorded Confirmed Type 1 tab PO DAILY 09/17/17 01/20/18 History vitamin,calcium,rjsebsqg-rxkz-bpgrg acid tablet Allergies Allergy/AdvReac Type Severity Reaction Status Date / Time No Known Allergies Allergy Verified 01/18/18 13:31 OB - H&P: Exam - Physical Exam Vital signs: Temp Pulse Resp BP Pulse Ox 98.4 F 89 18 124/84 98 01/20/18 06:40 01/20/18 06:40 01/20/18 06:40 01/20/18 06:40 01/20/18 06:40 - Constitutional no acute distress - Routine HEENT Exam Head: Present: normocephalic - Routine Neck Exam Present: supple - Routine Respiratory Exam Comments: Good air entry bilaterally. - Routine Cardiovascular Exam Present: RRR, Normal S1, Normal S2 - Routine Abdominal Exam Present: soft OB - Results - Labs Labs: Short CBC 01/20/18 Range/Units 06:25 WBC 7.6 (4.8-10.8) K/mm3 Hgb 12.8 (12.2-16.2) g/dL Hct 36.0 L (37.0-47.0) % Plt Count 123 L (142-424) K/mm3 BMP 01/20/18 06:25 Sodium 139 Potassium 3.9 Chloride 105 Carbon Dioxide 23 BUN 7 Creatinine 0.51 L Glucose 89 Urine 01/20/18 Range/Units 06:13 Urine Color Yellow (Yellow) Urine Appearance Sl cloudy (Clear) Urine pH 6.0 (5.0-8.5) Ur Specific [place] >= 1.030 (1.005-1.030) Urine Protein Trace (Negative) Urine Glucose (UA) Negative (Negative) OB - A/P Antepartum (1) Intrauterine growth restriction (IUGR) affecting care of mother Current visit: Yes Status: Acute (2) Herpes simplex type 2 (HSV-2) infection affecting , antepartum Current visit: Yes Status: Acute (3) Small for gestational age fetus affecting management of mother Current visit: Yes Status: Acute - Additional Plan Planning to breastfeed?: No Plan: other Additional Information:: She is 38 weeks gestational age and has had a previous section. She has a small for gestational age so we will go ahead with a repeat lower segment transverse section.
--- NOTE | 2018-01-20 09:35 | Operative Note ---
Date of procedure: 01/20/18 Pre-op Diagnosis:: Term , intrauterine growth restriction, herpes 2 virus, previous section Post-op Diagnosis:: Term , previous section, herpes 2 virus, intrauterine growth restriction, Procedure performed:: Repeat lower segment transverse section Surgeon:: Inderjit Mack MD Soda Worker(s):: Dr. Vargas BED TEACHER:: Scott Iglesias Anesthesia: spinal Estimated blood loss (mL): 600 Operative findings:: She delivered a liveborn female child at 9:08 AM on the morning of January 20, 2018. The baby had Apgars of 8 at 1 minute and 9 at 5 minutes. Ovaries and tubes appeared normal. PH is currently pending. Operative note:: She was taken to the operating room where epidural anesthesia was found be adequate. She was prepped and draped in normal sterile fashion in the supine position with a leftward tilt. A Ball catheter was in the bladder. A Pfannenstiel skin incision was made with knife then carried through to the underlying layer of fascia with cautery. The fascia was opened in the midline with cautery and extended laterally using Arevalo scissors. Lucille clamps were applied to the superior aspect of the fascial incision which was tented up and the underlying rectus muscles dissected off using cautery. The Lucille clamps were then applied to the inferior aspect of the fascial incision which in a similar fashion was tented up and the underlying rectus muscles dissected off using cautery. The rectus muscles were then in the midline, the peritoneum identified, and entered sharply with Metzenbaum scissors. This incision was then extended superiorly and inferiorly with cautery. We had good visualization of the bladder inferiorly. The bladder peritoneum was then opened in the midline and extended laterally using Metzenbaum scissors. A bladder flap was created digitally. The lower blade of the Fillmore was inserted so as to push the bladder out of the way. Transverse incision was made through the uterine muscle to the amnion. This incision was then extended laterally using fingers traction. The amnion was entered sharply with knife. There was clear fluid. The infant's head was then delivered atraumatically. This was followed by the anterior shoulder and the rest of the infant's body atraumatically. The oropharynx and nasopharynx were bulb suctioned. The infant was then handed off to Dr. Ham who assigned Apgars of 8 at 1 minute and 9 at 5 minutes. We then obtained cord blood as well as cord pH. Using gentle traction on the cord and countertraction on the fundus I was able to easily deliver the placenta intact. It had a normal three-vessel cord. The uterus was then cleared of clots and debris and exteriorized from the abdominal cavity. The uterine incision was then closed using running 0 Vicryl suture in a locked fashion. A second layer of the same suture was used to imbricate the first layer. The bladder peritoneum was then closed using running 2-0 Vicryl suture in a locked fashion. The gutters and cul-de-sac were then cleared of clots and debris and the uterus was returned the abdominal cavity. Once again hemostasis was assured. The peritoneum was grasped with Joana clamps and closed using running 2-0 Vicryl suture. The rectus muscles were then reapproximated using running 0 Vicryl suture. The fascia was closed using running #1 Vicryl suture. The subcutaneous tissues were then irrigated with warm water followed by closure Ugo's fascia using running 2-0 Monocryl suture. The skin was closed with ayush. The skin was then cleaned with Hibiclens. Sterile dressings were applied. She tolerated the procedure well and was taken to the recovery room in excellent condition. All sponges minute and needle counts were correct. Estimate a blood loss was approximately 600 mL. Condition: stable Disposition: PACU Specimens:: None Complications:: None
--- NOTE | 2018-01-20 09:44 | Progress Note ---
[facility] Anesthesia Record Part I Intake, IV Amount: 2,000 Estimated blood loss (mL): 600 Urine output (mL): 175 Blood Pressure: 118/72 SaO2: 97 Pulse Rate: 82 Respiratory Rate: 16 Temperature: 97.3 F Patient is:: Awake, Stable Stable to PACU at:: 09:40
--- NOTE | 2018-01-20 09:45 | Progress Note ---
[facility] Anesthesia Record Part II Discharge Time: 10:10 Destination: Obstetric PACU nurse assessment reviewed?: Yes Patient Condition:: Good Anesthesia Complications:: None
--- NOTE | 2018-01-20 10:24 | Pharmacy Consult Notes ---
[facility] Pharmacy VTE Monitoring - Patient Demographics Admission date: 01/20/18 Report Date: 01/20/18 Time: 10:23 Allergies/Adverse Reactions: Patient Allergies No Known Allergies Allergy (Verified 01/18/18 13:31) Height: 1.57 m Weight: 70.307 kg Patient Problems: Current Active Problems Intrauterine growth restriction (IUGR) affecting care of mother (Acute) Herpes simplex type 2 (HSV-2) infection affecting , antepartum (Acute) Small for gestational age fetus affecting management of mother (Acute) - VTE Risk Labs: VTE Related Lab Results Hgb 12.8 g/dL (12.2-16.2) 01/20/18 06:25 Hct 36.0 % (37.0-47.0) L 01/20/18 06:25 Plt Count 123 K/mm3 (142-424) L 01/20/18 06:25 BUN 7 mg/dL (7-18) 01/20/18 06:25 Creatinine 0.51 mg/dL (0.55-1.02) L 01/20/18 06:25 Estimated Creat Clear 190 mL/min (0-300) 01/20/18 06:25 Clinical Trial Participant: No - Prophylaxis VTE Prophylaxis Ordered?: Yes Types of VTE Prophylaxis: IPCS Knee High (POST OP)
[2018-01-21 07:00] LABS: Hematocrit 30.2 % (37.0-47.0); Hemoglobin 10.6 g/dL (12.2-16.2)
--- NOTE | 2018-01-21 09:05 | Progress Note ---
Internal Medicine - PN: Subj *Date: 01/21/18 *Time: 09:04 Interval history: She is doing very well this morning. She is eating and drinking and ablating. Her pain is well controlled. We will plan to send her home tomorrow. Exam Vital signs and Labs for Last 24 Hours: Temp Pulse Resp BP Pulse Ox 97.9 F 78 16 131/79 98 01/20/18 10:10 01/20/18 10:10 01/20/18 10:10 01/20/18 10:10 01/20/18 10:10 Laboratory Results - last 24 hr 01/20/18 09:30: Cord ABG pH 7.29 L 01/21/18 06:30: Hgb 10.6 L, Hct 30.2 L I & O for Last 24 hours: Intake & Output 01/18/18 01/19/18 01/20/18 01/21/18 11:59 11:59 11:59 11:59 Intake Total 1999 Balance 1999 Weight 155 lb Microbiology Reports for the Last 24 Hours: Microbiology 01/20/18 06:13 Urine,Clean Catch Urine Culture - Preliminary NO GROWTH AFTER 24 HOURS - Constitutional no acute distress Assessment and Plan (1) Intrauterine growth restriction (IUGR) affecting care of mother Current visit: Yes Status: Acute Category: Medical Code(s): O36.5990 - Maternal care for other known or suspected poor growth, unspecified trimester, not applicable or unspecified (2) Herpes simplex type 2 (HSV-2) infection affecting , antepartum Current visit: Yes Status: Acute Category: Medical Code(s): O98.519 - Other viral diseases complicating , unspecified trimester; B00.9 - Herpesviral infection, unspecified (3) Small for gestational age fetus affecting management of mother Current visit: Yes Status: Acute Category: Medical Code(s): O36.5990 - Maternal care for other known or suspected poor growth, unspecified trimester, not applicable or unspecified - Assessment and plan all Dx Assessment and Plan for all problems:: She continues to do very well. We will plan to send her home tomorrow.
--- NOTE | 2018-01-22 11:01 | Discharge Summary ---
General - General Admission date:: 01/20/18 Discharge date: 01/22/18 HPI HPI: 22 year old with elective repeat CS Normal course; ambulating, voiding without difficulty. Tolerating regular diet; lochia appropriate Pain control sufficient with Toradol- patient has h/o addiction and declines narcotics for pain Mild anemia 10.6 (preop 12.8) Also has a history of depression and having exacerbation now that baby has left hospital with adoptive parents She requests being started on meds for depression but reports that Zoloft previously made her sick Denies any thoughts of harming self or others Given Rx for SSRI Hospital Course Hospital Course: as per HPI Objective Vital signs: Temp Pulse Resp BP Pulse Ox 98.1 F 70 16 126/77 98 01/22/18 08:50 01/22/18 08:50 01/22/18 08:50 01/22/18 08:50 01/22/18 08:50 no acute distress - *Routine Respiratory Exam Absent: accessory muscle use, respiratory distress - *Routine Cardiovascular Exam Absent: tachycardia - *Routine Abdominal Exam Present: soft. Absent: tenderness, distended, guarding Comments: Incision approximated/intact with ayush. No cellulitis/drainage. - *Routine Extremities Exam Absent: edema - *Routine Skin Exam Present: dry, warm. Absent: rash - *Routine Neurological Exam Present: alert, oriented X3 - Routine Psychiatric Exam Present: cooperative, good insight, good judgment, depressed. Absent: anxious DS: Diagnosis - Discharge Diagnosis (1) with plans to adopt out baby Status: Acute (2) Intrauterine growth restriction (IUGR) affecting care of mother Status: Acute (3) Herpes simplex type 2 (HSV-2) infection affecting , antepartum Status: Acute (4) Delivery by elective section Status: Acute (5) Anemia due to acute blood loss Status: Acute (6) Depression Status: Acute Discharge Plan - Patient Discharge Instructions ACTIVITY: Limited activity, No heavy lifting DIET: regular diet Patient Instructions: Depression, Hemorrhage, Post Discharge Instructions - Follow up Plan Follow up with: Inderjit Mack MD [Primary Care Provider] - Disposition: Home, Self-Fci Medications: Home Medications Medication Instructions Recorded Confirmed Type 1 tab PO DAILY 09/17/17 01/20/18 History vitamin,calcium,twjsgtdp-tgmj-ophmn acid tablet Prescriptions/Medication Reconciliation: New Mag Hydrox/Aluminum Hyd/Simeth [Maalox 30ml UDC] 30 ml PO Q4HP PRN oral.susp PRN Reason: Dyspepsia Nicotine [Nicoderm 21mg/24hr patch] 21 mg TD DAILYP PRN patch.td24 PRN Reason: Smoking Cessation Ketorolac Tromethamine [Toradol 10mg tablet] 10 mg PO Q6 PRN #40 tab PRN Reason: pain Continue vitamin,calcium,yrpjeqms-ekhn-dmdnz acid tablet 1 tab PO DAILY
== END 2018-01-22 12:08 | disposition home or self-care (01) ==
LOC: 2ND 06:02 → OB 06:13
PROVIDERS: ADMIT Nurse Practitioner Obstetrics & Gynecology; ATTEND Nurse Practitioner Obstetrics & Gynecology

== ENCOUNTER → 2018-06-22 10:18 | Outpatient (CLI) | payer MEDICAID, SELFPAY ==
[2018-06-22 10:40] LABS: Basophils % 0.5 % (0.1-2.0); Eosinophils # 0.3 K/mm3 (0.0-0.4); Eosinophils % 6.6 % (0.1-12.0); Hematocrit 39.4 % (37.0-47.0); Lymphocytes # 1.6 K/mm3 (0.7-4.5); Lymphocytes % 33.5 K/mm3 (10-50); Mean Corpuscular HGB Conc 33.1 g/dL (31.8-35.4); Mean Corpuscular Hemoglobin 29.9 pg (27.0-31.2); Mean Corpuscular Volume 90.2 fl (81-99); Mean Platelet Volume 8.5 fl (7.4-10.4); Monocytes # 0.2 K/mm3 (0.1-1.0); Monocytes % 4.5 % (1.7-9.3); Neutrophils # 2.6 K/mm3 (1.8-7.8); Neutrophils % 54.8 % (37.0-80.0); Platelet Count 148 K/mm3 (142-424); Red Blood Count 4.36 M/mm3 (4.20-5.40); Red Cell Distribution Width 13.1 % (11.5-17.5); White Blood Count 4.8 K/mm3 (4.8-10.8)
[2018-06-22 11:30] LABS: Alanine Aminotransferase 15 U/L (12-78); Albumin Level 3.5 gm/dL (3.4-5.0); Albumin/Globulin Ratio 1.2 (1.1-1.8); Alkaline Phosphatase 59 U/L (46-116); Anion Gap 11.9 mEq/L (5-15); Aspartate Amino Transferase 11 U/L (15-37); Bilirubin,Total 0.4 mg/dL (0.2-1.0); Blood Urea Nitrogen 13 mg/dL (7-18); Calcium 8.4 mg/dL (8.5-10.1); Carbon Dioxide 25 mmol/L (21.0-32.0); Chloride 106 mmol/L (98-107); Creatinine,Serum 0.63 mg/dL (0.55-1.02); Estimated Glomerular Filt Rate 116 ml/min (>60); GFR (African American) 140 ML/MIN (>60); Globulin 2.9 gm/dl (1.3-3.2); Glucose 94 mg/dL (74-106); Potassium 3.9 mmoL/L (3.5-5.1); Sodium 139 mmol/L (136-145); Total Protein,Serum 6.4 gm/dL (6.4-8.2)
== END ==
PROVIDERS: PCP Nurse Practitioner Family; Visit Provider Nurse Practitioner Family
DX: R10.13 Epigastric pain (principal)
CPT/HCPCS: 36415; 80053; 85025

== ENCOUNTER → 2019-04-20 12:03 | Outpatient (CLI) | payer MEDICAID, SELFPAY | PROVIDERS: PCP Family Medicine; Visit Provider Nurse Practitioner Family | DX: E01.0 Iodine-deficiency related diffuse (endemic) goiter (principal) ==

== ENCOUNTER → 2019-04-24 10:14 | Outpatient (CLI) | payer MEDICAID, SELFPAY ==
--- NOTE | 2019-04-24 10:27 | US_ITS ---
US thyroid HISTORY: ITS.REASON: THYROMEGLY ORDERING PHYSICIAN: Chela Baron APRN PATIENT AGE: 24 years Comparison: None FINDINGS: Right lobe: 4.2 x 1.5 x 1.3 cm Left lobe: 4.3 x 1.6 x 1.5 cm Isthmus: 3 mm in thickness centrally. There is some minimal fullness of the isthmus along the right lateral aspect but no discrete nodule. There is homogeneous echogenicity of the thyroid gland. No discrete mass or other significant anomalies evident. IMPRESSION: Mildly enlarged thyroid gland otherwise negative thyroid ultrasound
--- NOTE | 2019-04-24 10:51 | MR_ITS ---
MR head/brain wo con HISTORY: Dizziness, constant headaches, off balance ITS.REASON: RECURRENT HEADACHE, DIZZINESS ORDERING PHYSICIAN: Chela Baron APRN PATIENT AGE: 24 years Comparison: 12/27/2015 TECHNIQUE: Standard multiplanar multiecho sequences are performed without contrast. FINDINGS: No midline shift, mass effect, intracranial hemorrhage, or hydrocephalus. No evidence of acute infarction. There are 2 small areas of increased T2 signal which are in the left centrum semiovale one at the mid aspect of the parietal lobe and one at the posterior aspect of the parietal lobe. These are oriented at right angles to the plane of the lateral ventricles and may represent Weller's fingers which are seen with multiple sclerosis. There is an additional small rounded focus of increased T2 signal in the right semiovale anteriorly. The corpus callosum and midbrain and optic tracts have an unremarkable appearance. The cerebellopontine angle, cerebellum, and midbrain and brainstem have an unremarkable appearance. No mastoid effusion or sinus air-fluid level. The pituitary, optic chiasm, and craniocervical junction are unremarkable. IMPRESSION: 1. There are at least 3 T2 white matter hyperintensities 2 on the left in the centrum semiovale within the parietal lobe and oriented perpendicular to the long axis of the left lateral ventricle and one in the right centrum semiovale anteriorly. These are nonspecific but could be due early/mild demyelinating process such as multiple sclerosis. Differential diagnosis would include gliotic foci from premature ischemic change/microvascular angiopathy or migraine headache. 2. Otherwise negative MRI of the brain.
== END ==
PROVIDERS: PCP Nurse Practitioner Family; Visit Provider Nurse Practitioner Family
DX: R51 Headache (principal); R42 Dizziness and giddiness; E01.0 Iodine-deficiency related diffuse (endemic) goiter
CPT/HCPCS: 70551; 76536

== ENCOUNTER → 2019-10-30 09:28 | Outpatient (CLI) | payer OTHER, SELFPAY ==
[2019-10-30 10:14] LABS: Basophils % 0.4 % (0.1-2.0); Eosinophils # 0.2 K/mm3 (0.0-0.4); Eosinophils % 3.9 % (0.1-12.0); Hematocrit 43.9 % (37.0-47.0); Hemoglobin 14.8 g/dL (12.2-16.2); Lymphocytes # 0.6 K/mm3 (0.7-4.5); Lymphocytes % 11.6 % (10-50); Mean Corpuscular HGB Conc 33.7 g/dL (31.8-35.4); Mean Corpuscular Hemoglobin 31.3 pg (27.0-31.2); Mean Corpuscular Volume 92.8 fl (81-99); Mean Platelet Volume 8.8 fl (7.4-10.4); Monocytes # 0.2 K/mm3 (0.1-1.0); Monocytes % 4.4 % (1.7-9.3); Neutrophils # 3.9 K/mm3 (1.8-7.8); Neutrophils % 79.8 % (37.0-80.0); Platelet Count 153 K/mm3 (142-424); Red Blood Count 4.73 M/mm3 (4.20-5.40); Red Cell Distribution Width 12.5 % (11.5-17.5); White Blood Count 4.9 K/mm3 (4.8-10.8)
[2019-10-30 11:13] LABS: Alanine Aminotransferase 15 U/L (9-52); Albumin/Globulin Ratio 1.3 (1.1-1.8); Alkaline Phosphatase 72 U/L (46-116); Anion Gap 15.1 mEq/L (5-15); Aspartate Amino Transferase 13 U/L (15-37); Bilirubin,Total 0.6 mg/dL (0.2-1.0); Blood Urea Nitrogen 10 mg/dL (7-18); Calcium 8.7 mg/dL (8.5-10.1); Carbon Dioxide 26 mmol/L (21.0-32.0); Chloride 105 mmol/L (98-107); Chol/HDL Ratio 2.3 (1-3.5); Cholesterol 113 mg/dL (140-200); Creatinine,Serum 0.74 mg/dL (0.55-1.02); Estimated Glomerular Filt Rate 96 ml/min (>60); GFR (African American) 116 ML/MIN (>60); Globulin 3.2 gm/dl (1.3-3.2); Glucose 125 mg/dL (74-106); HDL Cholesterol 49 mg/dL (29-89); LDL Cholesterol 47 mg/dL (0-130); Potassium 4.1 mmoL/L (3.5-5.1); Sodium 142 mmol/L (137-145); Thyroid Stimulating Hormone 0.89 uIU/ml (0.358-3.740); Total Protein,Serum 7.2 g/dL (6.4-8.2); Triglycerides 84 mg/dL (30-200); VLDL Cholesterol 17 mg/dL (0-40)
[2019-10-31 09:54] LABS: Iron 67 ug/dL (27-159); UIBC 269 ug/dL (131-425)
[2019-11-03 07:51] LABS: Iron Saturation 20 % (15-55); Vitamin B12 629 pg/mL (232-1245); Vitamin D 25 Hydroxy 21.6 ng/mL (30.0-100.0)
== END ==
PROVIDERS: Visit Provider Nurse Practitioner Psychiatric/Mental Health
DX: R53.83 Other fatigue (principal); Z00.00 Encounter for general adult medical examination without abnormal findings; E55.9 Vitamin D deficiency, unspecified
CPT/HCPCS: 36415; 80053; 80061; 82607; 82652; 83540; 83550; 84443; 85025

== ENCOUNTER 2020-01-29 20:12 | Emergency (ER) | payer OTHER, SELFPAY ==
[2020-01-29 20:13] VITALS: BMI 29.2
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
[2020-01-29 20:15] VITALS: BP 142/88; PULSE 94; RESP 16; TEMP 37.6; O2SAT 98
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
[2020-01-29 20:43] VITALS: BP 138/86; PULSE 92; RESP 16; TEMP 37.6; O2SAT 98
[2020-02-14 15:43] LABS: POC Glucose,Bedside 92 (70-110)
== END 2020-01-29 20:46 | disposition short-term general hospital (02) ==
PROVIDERS: Emergency Provider Emergency Medicine; PCP Nurse Practitioner Family
DX: S39.91XA Unspecified injury of abdomen, initial encounter (principal); M54.6 Pain in thoracic spine; V49.50XA Passenger injured in collision with unspecified motor vehicles in traffic accident, initial encounter; F33.1 Major depressive disorder, recurrent, moderate; F17.210 Nicotine dependence, cigarettes, uncomplicated; F11.11 Opioid abuse, in remission; Z79.899 Other long term (current) drug therapy; Z94.9 Transplanted organ and tissue status, unspecified
CPT/HCPCS: 29799; 71045; 72170; 82962; 99283

== ENCOUNTER 2020-02-03 19:33 | Emergency (ER) | payer OTHER, SELFPAY ==
[2020-02-03 19:40] VITALS: BP 138/96; PULSE 77; RESP 16; TEMP 36.8; O2SAT 97; BMI 30.2
[2020-02-03 19:54] LABS: Basophils # 0.1 K/mm3 (0-0.2); Basophils % 1.7 % (0.1-2.0); Eosinophils # 0.2 K/mm3 (0.0-0.4); Eosinophils % 2.8 % (0.1-12.0); Hematocrit 46.2 % (37.0-47.0); Hemoglobin 15.8 g/dL (12.2-16.2); Lymphocytes # 1.6 K/mm3 (0.7-4.5); Lymphocytes % 26.1 % (10-50); Mean Corpuscular HGB Conc 34.1 g/dL (31.8-35.4); Mean Corpuscular Hemoglobin 32.1 pg (27.0-31.2); Mean Corpuscular Volume 94.1 fl (81-99); Mean Platelet Volume 8.8 fl (7.4-10.4); Monocytes # 0.3 K/mm3 (0.1-1.0); Monocytes % 4.8 % (1.7-9.3); Neutrophils % 64.7 % (37.0-80.0); Platelet Count 179 K/mm3 (142-424); Red Blood Count 4.91 M/mm3 (4.20-5.40); White Blood Count 6.2 K/mm3 (4.8-10.8)
[2020-02-03 20:02] LABS: Alanine Aminotransferase 16 U/L (12-78); Albumin Level 4.7 g/dl (3.5-5.0); Albumin/Globulin Ratio 1.5 (1.1-1.8); Alkaline Phosphatase 76 U/L (38-126); Anion Gap 12.8 mEq/L (5-15); Aspartate Amino Transferase 26 U/L (14-36); Bilirubin,Total 0.5 mg/dl (0.2-1.3); Blood Urea Nitrogen 11 mg/dl (7-17); Calcium 9.8 mg/dl (8.4-10.2); Carbon Dioxide 24 mmol/L (22.0-30.0); Chloride 107 mmol/L (98-107); Creatinine Clearance Estimated 127 mL/min (50-200); Estimated Glomerular Filt Rate 87 ml/min (>60); GFR (African American) 106 ML/MIN (>60); Globulin 3.2 g/dL (1.3-3.2); Glucose 121 mg/dl (74-100); Potassium 3.8 mmoL/L (3.5-5.1); Sodium 140 mmol/L (136-145); Total Protein,Serum 7.9 g/dl (6.3-8.2)
[2020-02-03 20:04] LABS: Microscopic, Urine URINE MICROSCOPIC (MICROSCOPIC)
[2020-02-03 20:15] VITALS: BP 151/76; PULSE 77; RESP 18; O2SAT 94
[2020-02-03 20:18] LABS: Appearance,Urine CLOUDY (Clear); Bilirubin,Urine Negative (Negative); Blood, Urine Negative (Negative); Color,Urine YELLOW (Yellow); Glucose,Urine (UA) Negative (Negative); Ketones,Urine TRACE (Negative); Leukocyte Esterase,Urine 1+ (Negative); Nitrate,Urine Negative (Negative); Protein,Urine Negative (Negative); Specific Gravity, Urine 1.025 (1.005-1.030)
[2020-02-03 20:21] LABS: HCG Qualitative, Serum Negative (Negative)
[2020-02-03 20:23] LABS: Amorphous Sediment,Urine Trace /lpf; Mucus,Urine 4+ /lpf
[2020-02-03 20:31] VITALS: BP 141/86; PULSE 80; RESP 16; O2SAT 98
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
[2020-02-03 21:25] VITALS: BP 125/70; PULSE 67; RESP 18; TEMP 36.8; O2SAT 98
== END 2020-02-03 21:34 | disposition home or self-care (01) ==
PROVIDERS: Family Medicine; Emergency Provider Emergency Medicine; PCP Nurse Practitioner Family
DX: R42 Dizziness and giddiness (principal); T40.2X5A Adverse effect of other opioids, initial encounter; Y92.019 Unspecified place in single-family (private) house as the place of occurrence of the external cause; F33.1 Major depressive disorder, recurrent, moderate; F17.210 Nicotine dependence, cigarettes, uncomplicated
CPT/HCPCS: 80053; 81001; 84703; 85025; 87086; 96365; 96375; 99281

== ENCOUNTER 2021-08-16 09:04 | Emergency (ER) | payer OTHER, SELFPAY ==
[2021-08-16 09:23] VITALS: BP 121/78; PULSE 92; RESP 16; TEMP 36.8; O2SAT 98; BMI 25.4
[2021-08-16 09:23] LABS: UTC Strep Screen (Rapid) Positive (Negative)
[2021-08-16 09:34] VITALS: BP 121/78; PULSE 92; RESP 16; TEMP 36.8
--- NOTE | 2021-08-16 09:35 | HMH.EDUTC ---
[facility] [place] Impression: Strep [place] Disposition: Home, Self-Care Condition on Discharge: Good Instructions: Strep Throat, DI for Strep Throat Additional Instructions: Drink plenty of fluids. Take tylenol or ibuprofen for pain or fever. Take the medications as directed. Follow up with your regular doctor. GO TO THE ER FOR ANY WORSENING SYMPTOMS Throw your tooth brush away and get a new one. Prescriptions: Brompheniramine/Pseudoephed/Dm [Bromfed Dm Cough Syrup] 5 ml PO Q6HP PRN #240 ml PRN Reason: Cough Transmission Status: Received by [id number] Amoxicillin [Amoxicillin 500mg Tab] 500 mg PO TID 10 Days #30 tab Transmission Status: Received by [id number] predniSONE [Deltasone 10mg tablet] 10 mg PO BID 3 Days #6 tab Transmission Status: Received by [id number] Referrals: Queta Eaton MD [Primary Care Provider] - Time of Disposition: 09:56 Medical Decision Making - Medical Records Medical records reviewed: No: I reviewed the patient's medical records. - Clay Inquiry Pt receiving controlled substance: No Vital Signs: 08/16/21 09:23 08/16/21 09:34 Temperature 98.3 F 98.3 F Temperature Source Oral Pulse Rate 92 H Pulse Rate [Left] 92 H Respiratory Rate 16 16 Blood Pressure 121/78 Blood Pressure [Right Arm] 121/78 Blood Pressure Mean [Right Arm] 92 02 Sat by Pulse Oximetry 98 - Lab Data Lab results reviewed: Yes: I reviewed the patient's lab results. Lab Results 08/16/21 09:22: Strep Scn Rapid Clinic Positive [place] [facility] [place] - General Stated complaint: sore throat Time Seen by Provider: 08/16/21 09:35 Mode of Arrival: Ambulatory Source of Information: Patient Limitations: No Limitations Description of Symptoms (Recalled from Triage Doc. by RN): pt c/o sore throat and a dry cough. ongoing since yesterday. HEENT Symptoms (Recalled from RN notes): Yes (sore throat) Resp Symptoms (Recalled from RN notes): Yes (cough) Skin Symptoms (Recalled from RN notes): No MS Symptoms (Recalled from RN notes): No Functional Status (Recalled from RN notes): wnl - History of Present Illness Provider Complaint: She c/o sore throat, chilling, low grade fever and feeling bad for the past 2 days. - Related Data Home Medications Medication Instructions Recorded Confirmed ibuprofen 800 mg tablet 800 mg PO TID 06/07/18 10/02/19 estradioL [Estradiol] 2 mg PO DAILY 06/04/19 10/02/19 Previous Rx's Medication Instructions Recorded Acetaminophen 1,000 mg PO TID PRN #60 tab 10/30/19 Azithromycin [Azithromycin 500mg 500 mg PO DAILY #5 tab 11/18/19 Tab] Ibuprofen [Ibuprofen 600mg 600 mg PO Q6H #30 tab 11/18/19 Tablet] cephALEXin [cephALEXin 500mg 500 mg PO Q6H #30 cap 11/18/19 capsule*] predniSONE [Prednisone 10mg Tab 10 mg PO UD DOSE PK #21 tab 11/18/19 Dose-Pack] nicotine 14 mg/24 hr daily 1 patch TRANSDERMA Q24H #28 each 11/27/19 transdermal patch cariprazine 3 mg capsule 3 mg PO DAILY #30 cap 01/10/20 hydroxyzine pamoate 50 mg capsule See Rx Instructions PO QHS PRN #60 01/10/20 cap vilazodone 20 mg tablet 20 mg PO DAILY 30 Days #30 tab 01/10/20 Meclizine HCl [Meclizine 25mg Tab] 25 mg PO TID 10 Days #30 tab 02/03/20 Amoxicillin [Amoxicillin 500mg Tab] 500 mg PO TID 10 Days #30 tab 08/16/21 Brompheniramine/Pseudoephed/Dm 5 ml PO Q6HP PRN #240 ml 08/16/21 [Bromfed Dm Cough Syrup] predniSONE [Deltasone 10mg tablet] 10 mg PO BID 3 Days #6 tab 08/16/21 Allergies Allergy/AdvReac Type Severity Reaction Status Date / Time No Known Allergies Allergy Verified 02/03/20 19:52 - Worker's Comp Is this a Worker's Comp case?: No [facility] History - Hepatitis A Screen Drug use history?: No High risk sexual behaviors?: No History of sexually transmitted infection?: No Currently employed?: No Childcare worker?: No Do you have indoor plumbing?: Yes Do you have electricity?: Yes Attestation statement:: This isha
== END 2021-08-16 10:08 | disposition home or self-care (01) ==
PROVIDERS: Emergency Provider Nurse Practitioner Family; PCP Family Medicine
DX: J02.0 Streptococcal pharyngitis (principal); F33.1 Major depressive disorder, recurrent, moderate
CPT/HCPCS: 87880; 99202; G0463

== ENCOUNTER 2021-10-06 09:21 | Emergency (ER) | payer BC, SELFPAY ==
[2021-10-06 09:22] VITALS: BP 127/85; PULSE 87; RESP 20; TEMP 37.3; O2SAT 99; BMI 27.4
--- NOTE | 2021-10-06 09:37 | HMH.EDGENADL ---
ED Disposition Clinical Impression: Sinusitis Disposition: Home, Self-Care Condition on Discharge: Good Instructions: Sinusitis Additional Instructions: follow up pcp if not better Prescriptions: Azithromycin [Zithromax 500mg Tab Tri-Sandoval] 500 mg PO DAILY #3 tab Transmission Status: Pending to [facility] Referrals: Queta Eaton MD [Primary Care Provider] - - Critical Care Critical Care Time: No Attestation: On 10/06/21, the high probability of a clinically significant, sudden or life threatening deterioration of the following system(s) required my full and direct attention, intervention and personal management. The time I documented below is in addition to time spent performing reported procedures but includes the following listed in this critical care notation. Medical Decision Making - Medical Records Medical records reviewed: Yes: I reviewed the patient's medical records. - Clay Inquiry Pt receiving controlled substance: No Vital Signs: 10/06/21 09:22 Temperature 99.2 F Temperature Source Oral Pulse Rate [Left Radial] 87 Respiratory Rate 20 Blood Pressure [Right Arm] 127/85 Blood Pressure Mean [Right Arm] 99 02 Sat by Pulse Oximetry 99 Oxygen Delivery Method Room Air General Adult HPI - General Chief complaint: Upper Respiratory Infection Stated complaint: weakness Time Seen by Provider: 10/06/21 09:37 Mode of Arrival: EMS Source of Information: Patient Limitations: No Limitations Description of Symptoms (Recalled from ER Triage Doc. by RN): pt to ed c/o enciso, sinus pressure, fever since wednesday. pt states she has had brief periods of dizziness since wednesday. - History of Present Illness HPI narrative: sinus congestion, dizzy episode today, feels better now Radiation: non-radiation Severity: mild, moderate Consistency: intermittent Relieving factors: none Exacerbating factors: none Associated symptoms: denies other symptoms - Related Data Home Medications Medication Instructions Recorded Confirmed fluoxetine 10 mg capsule 10 mg PO cap 08/20/21 08/20/21 Previous Rx's Medication Instructions Recorded Amoxicillin [Amoxicillin 500mg Tab] 500 mg PO TID 10 Days #30 tab 08/16/21 Brompheniramine/Pseudoephed/Dm 5 ml PO Q6HP PRN #240 ml 08/16/21 [Bromfed Dm Cough Syrup] predniSONE [Deltasone 10mg tablet] 10 mg PO BID 3 Days #6 tab 08/16/21 Azithromycin [Zithromax 500mg Tab 500 mg PO DAILY #3 tab 10/06/21 Tri-Sandoval] Allergies Allergy/AdvReac Type Severity Reaction Status Date / Time No Known Allergies Allergy Verified 08/20/21 13:45 [facility] History - Hepatitis A Screen Drug use history?: No High risk sexual behaviors?: No History of sexually transmitted infection?: No Currently employed?: No Childcare worker?: No Do you have indoor plumbing?: Yes Do you have electricity?: Yes Attestation statement:: This patient has been screened for Hepatitis A risk factors. Medical History: Reports:: Depression Denies:: Cancer, Chronic Obstructive Pulmonary Disease (COPD), Diabetes Mellitus Type 1, Diabetes Mellitus Type 2, Internal Pacemaker, MRSA, Seizures Other Medical History: Denies: Blood Transfusion Reaction Laterality Cases: Bilateral: Other Other Surgeries: Yes: Appendectomy, , Other. No: Pacemaker Amputation: No Fractures: No - Social History Smoking Status: Current every day smoker Tobacco Type: cigarettes (Former ), e-cigarettes (Vape) # Packs/Day (cigarettes): 1 Alcohol Intake: never Substance Use Type: former substance user, other, heroin Occupational Status: unemployed Housing: house Household Members: family - Psychiatric History Pschychiatric History:: Reports:: Depression Family Hx:: Cancer, Heart Attack, Diabetes, Thyroid Disorder Comment: Severe IUGR,oligo,no end diastolic flow ROS Obtained: Yes All systems reviewed & no additional complaints Physical Exam - General General appearance: alert, in no apparent distre
[2021-10-06 09:57] VITALS: BP 121/80; PULSE 81; RESP 20; TEMP 37.3; O2SAT 99
--- NOTE | 2021-10-06 10:03 | PC.NURSE ---
at bedside; pt was swabbed for COVID
== END 2021-10-06 10:04 | disposition home or self-care (01) ==
PROVIDERS: Emergency Provider Emergency Medicine; PCP Family Medicine
DX: U07.1 COVID-19 (principal); J01.00 Acute maxillary sinusitis, unspecified; F33.1 Major depressive disorder, recurrent, moderate
CPT/HCPCS: 99282; C9803; U0003; U0005

== ENCOUNTER 2021-10-29 08:09 | Emergency (ER) | payer BC, SELFPAY ==
[2021-10-29 08:10] VITALS: BP 135/89; PULSE 84; RESP 16; TEMP 37.1; O2SAT 97; BMI 27.4
--- NOTE | 2021-10-29 08:38 | HMH.EDGENADL ---
ED Disposition Clinical Impression: Congestion of nasal sinus, Lightheadedness Abdominal pain Qualifiers: Abdominal location: generalized Qualified Code(s): R10.84 - Generalized abdominal pain Disposition: Home, Self-Care Condition on Discharge: Good Referrals: Queta Eaton MD [Primary Care Provider] - - Critical Care Critical Care Time: No Attestation: On 10/29/21, the high probability of a clinically significant, sudden or life threatening deterioration of the following system(s) required my full and direct attention, intervention and personal management. The time I documented below is in addition to time spent performing reported procedures but includes the following listed in this critical care notation. Medical Decision Making - Clay Inquiry Pt receiving controlled substance: No Vital Signs: 10/29/21 08:10 Temperature 98.7 F Temperature Source Oral Pulse Rate [Right Radial] 84 Respiratory Rate 16 Blood Pressure [Right Arm] 135/89 Blood Pressure Mean [Right Arm] 104 Blood Pressure Source [Right Arm] Automatic Cuff Blood Pressure Position [Right Arm] Supine 02 Sat by Pulse Oximetry 97 Oxygen Delivery Method Room Air - Lab Data Lab Results 10/29/21 08:52: Urine Color Yellow, Urine Appearance Clear, Urine pH 6.0, Ur Specific [place] 1.020, Urine Protein Negative, Urine Glucose (UA) Negative, Urine Ketones Negative, Urine Blood Negative, Urine Nitrate Negative, Urine Bilirubin Negative, Urine Urobilinogen 0.2, Ur Leukocyte Esterase Negative, Urine RBC None, Urine WBC None, Ur Squamous Epith Cells Occasional, Urine Bacteria Trace 10/29/21 08:52: WBC 5.3, RBC 5.02, Hgb 15.8, Hct 47.2 H, MCV 93.9, MCH 31.5 H, MCHC 33.5, RDW 12.6, Plt Count 173, MPV 7.8, Neut % (Auto) 74.9, Lymph % (Auto) 19.6, [place] % (Auto) 3.9, Eos % (Auto) 1.0, Baso % (Auto) 0.5, Neut # (Auto) 4.0, Lymph # (Auto) 1.0, [place] # (Auto) 0.2, Eos # (Auto) 0.1, Baso # (Auto) 0.0 10/29/21 08:52: Urine HCG, Qual Negative 10/29/21 08:52: Sodium 136, Potassium 4.3, Chloride 105, Carbon Dioxide 24, Anion Gap 11.3, BUN 14, Creatinine 0.80, Estimated Creat Clear 113, Estimated GFR 86, Est GFR ( Amer) 104, Glucose 99, Calcium 8.6, Total Bilirubin 0.6, AST 25, ALT 21, Alkaline Phosphatase 62, Total Protein 7.9, Albumin 4.7, Globulin 3.2, Albumin/Globulin Ratio 1.5, Lipase 98 10/29/21 09:26: Lactate 0.9 Result diagrams: 10/29/21 08:52 10/29/21 08:52 Orders (Tests/Meds): ED MEDICATIONS Generic Name Dose Route Start Last Admin Trade Name Freq PRN Reason Stop Dose Admin Sodium Chloride 1,000 mls @ 999 mls/hr 10/29/21 08:45 10/29/21 09:03 Sod Chlor 0.9% 1000ml Bag IV 11/28/21 08:44 999 mls/hr .Q1H1M JOSE Administration Discontinued Medications Generic Name Dose Route Start Last Admin Trade Name Freq PRN Reason Stop Dose Admin Acetaminophen 1,000 mg 10/29/21 08:36 10/29/21 09:03 Acetaminophen 500mg Tab PO 10/29/21 08:37 1,000 mg ONCE ONE Administration Ketorolac Tromethamine 30 mg 10/29/21 08:33 10/29/21 09:03 Ketorolac 30mg/Ml Vial IV 10/29/21 08:34 30 mg ONCE ONE Administration Ondansetron HCl 4 mg 10/29/21 08:33 10/29/21 09:03 Ondansetron 4mg/2ml Vial IV 10/29/21 08:34 4 mg ONCE ONE Administration Medical Decision Narrative: 26-year-old female presents emergency department with multiple complaints, stating that she feels tremulous and like she might pass out today, stating that she is generally weak, with patient having no focal neurologic deficits on physical examination with patient hemodynamically stable in the emergency department. Patient denies any actual syncope today. Patient also states that she has some abdominal pain, without signs of peritonitis on physical examination. Patient also complained of some sinus congestion today. Patient has not had vomiting but has had nonblack nonbloody diarrhea for approximately 1 week without fevers or other constitutional symptoms. Patient
[2021-10-29 09:02] LABS: Microscopic, Urine URINE MICROSCOPIC (MICROSCOPIC)
[2021-10-29 09:07] LABS: Appearance,Urine CLEAR (Clear); Basophils % 0.5 % (0.1-2.0); Bilirubin,Urine Negative (Negative); Blood, Urine Negative (Negative); Color,Urine YELLOW (Yellow); Eosinophils # 0.1 K/mm3 (0.0-0.4); Glucose,Urine (UA) Negative (Negative); Hematocrit 47.2 % (37.0-47.0); Hemoglobin 15.8 g/dL (12.2-16.2); Ketones,Urine Negative (Negative); Leukocyte Esterase,Urine Negative (Negative); Lymphocytes % 19.6 % (10-50); Mean Corpuscular HGB Conc 33.5 g/dL (31.8-35.4); Mean Corpuscular Hemoglobin 31.5 pg (27.0-31.2); Mean Corpuscular Volume 93.9 fl (81-99); Mean Platelet Volume 7.8 fl (7.4-10.4); Monocytes # 0.2 K/mm3 (0.1-1.0); Monocytes % 3.9 % (1.7-9.3); Neutrophils % 74.9 % (37.0-80.0); Nitrate,Urine Negative (Negative); Platelet Count 173 K/mm3 (142-424); Protein,Urine Negative (Negative); Red Blood Count 5.02 M/mm3 (4.20-5.40); Red Cell Distribution Width 12.6 % (11.5-17.5); Urobilinogen,Urine 0.2 EU/dl (0.2); White Blood Count 5.3 K/mm3 (4.8-10.8)
[2021-10-29 09:13] LABS: Urine Pregnancy, HCG Qual. Negative (Negative)
[2021-10-29 09:19] LABS: Alanine Aminotransferase 21 U/L (12-78); Alkaline Phosphatase 62 U/L (38-126); Aspartate Amino Transferase 25 U/L (14-36); Bilirubin,Total 0.6 mg/dl (0.2-1.3); Blood Urea Nitrogen 14 mg/dl (7-17); Calcium 8.6 mg/dl (8.4-10.2); Carbon Dioxide 24 mmol/L (22.0-30.0); Creatinine Clearance Estimated 113 mL/min (50-200); Estimated Glomerular Filt Rate 86 ml/min (>60); GFR (African American) 104 ML/MIN (>60); Glucose 99 mg/dl (74-100)
[2021-10-29 09:22] LABS: Anion Gap 11.3 mEq/L (5-15); Chloride 105 mmol/L (98-107); Potassium 4.3 mmoL/L (3.5-5.1); Sodium 136 mmol/L (136-145)
[2021-10-29 09:25] LABS: Albumin Level 4.7 g/dl (3.5-5.0); Albumin/Globulin Ratio 1.5 (1.1-1.8); Globulin 3.2 g/dL (1.3-3.2); Lipase 98 U/L (23-300); Total Protein,Serum 7.9 g/dl (6.3-8.2)
--- NOTE | 2021-10-29 09:36 | ECG_ITS ---
APPROVED REPORT Exam: Resting ECG HR:68 bpm ECG Measurements Heart Rate 68 AXES [place] 132 P 55 QRSd 80 QRS 53 QT 422 T 49 QTc 438 Conclusion SINUS RHYTHM NORMAL ECG UNCONFIRMED REPORT Electronically signed by : Jean Pierre Nice MD 10/29/2021 17:58:00
[2021-10-29 09:42] LABS: Bacteria,Urine Trace /lpf; Squamous Epithelial Cell,Urine Occasional #/hpf (0-5)
[2021-10-29 10:05] LABS: Lactic Acid 0.9 mmol/L (0.7-2.1)
[2021-10-29 10:38] VITALS: BP 143/93; PULSE 77; RESP 16; TEMP 37.1; O2SAT 97
== END 2021-10-29 10:38 | disposition home or self-care (01) ==
PROVIDERS: Emergency Provider Student in an Organized Health Care Education/Training Program; PCP Family Medicine
DX: R10.84 Generalized abdominal pain (principal); R42 Dizziness and giddiness; R09.81 Nasal congestion; F33.1 Major depressive disorder, recurrent, moderate
CPT/HCPCS: 80053; 81001; 81025; 83605; 83690; 85025; 93005; 96365; 96375; 99283; J2405